=== PATIENT | male | born 1965 | race Caucasian/White ===

== ENCOUNTER 2017-08-12 06:09 | Day surgery (SDC) | payer BC ==
[~2017-08-12] VITALS: Ht 177.8 cm; Wt 76.7 kg
[~2017-08-12 06:09] MED LIST: ATOR20 PO; CIPR500 PO; Cipro500 MG PO; DOCU100 PO; Flagyl500 MG PO; IBUP400 PO; METR500 PO; OMEP10ER PO; OMEP20ER PO; OXYACE5T PO
== END 2017-08-12 22:49 | disposition home or self-care (01) ==
LOC: ORSCMMR 06:09
PROVIDERS: Surgery
PROC: 0YUA0JZ Supplement Bilateral Inguinal Region with Synthetic Substitute, Open Approach (ICD-10-PCS; principal; 2017-08-12 07:30)
DX: K40.20 Bilateral inguinal hernia, without obstruction or gangrene, not specified as recurrent (principal); K21.9 Gastro-esophageal reflux disease without esophagitis; Z79.899 Other long term (current) drug therapy
CPT/HCPCS: C1781; J0690; J1100; J1885; J2250; J2405; J3010; J7120